=== PATIENT | female | born 2000 | race Caucasian/White ===

== ENCOUNTER 2022-07-30 14:11 | Emergency (ER) | payer MEDICAID, MEDICARE ==
[~2022-07-30] VITALS: Ht 160 cm; Wt 75.0 kg
[2022-07-30] MEDS ORDERED: IBUPROFEN 600MG TABLET PO STA (16:52)
[2022-07-30 16:58] VITALS: BP 131/96
[2022-07-30] MEDS ORDERED: D-ME473S50 PO (16:59)
[2022-07-30] MEDS ORDERED: AMOX500T2 MT (16:59)
[2022-07-30] MEDS ORDERED: IBUP-2029 PO (16:59)
== END 2022-07-30 17:10 | disposition home or self-care (01) ==
LOC: ER 14:11
DX: J06.9 Acute upper respiratory infection, unspecified (principal); H66.91 Otitis media, unspecified, right ear
CPT/HCPCS: 99283

== ENCOUNTER 2022-10-16 14:15 | Emergency (ER) | payer MEDICAID, MEDICARE ==
[~2022-10-16] VITALS: Ht 144.8 cm; Wt 58.0 kg
[~2022-10-16 14:15] MED LIST: AMOX500T2 MT; D-ME473S50 PO; IBUP-2029 PO
[2022-10-16 14:26] VITALS: BP 103/65
[2022-10-16] MEDS ORDERED: MAGNESIUM/ALUMINUM HYDROXIDE/SIMETHICONE 30ML UDC PO STA (16:41)
[2022-10-16] MEDS ORDERED: VISCOUS LIDOCAINE 2% 15 ML UDC PO STA (16:41)
[2022-10-16] MEDS ORDERED: ONDANSETRON HCL 4MG TABLET PO ONE (16:45)
[2022-10-16] MEDS ORDERED: FAMOTIDINE 20MG TABLET PO ONE (16:45)
[2022-10-16 17:26] LABS: CLARITY URINE TURBID (CLEAR); COLOR URINE DARK YELLOW (YELLOW); KETONES URINE NEGATIVE (NEGATIVE); LEUKOCYTE ESTERASE URINE NEGATIVE (NEGATIVE); NITRITE URINE NEGATIVE (NEGATIVE); OCCULT BLOOD URINE NEGATIVE (NEGATIVE); PH URINE 6.5 (4.5-8.0); PROTEIN URINE TRACE (NEGATIVE); SPECIFIC GRAVITY URINE 1.036 (1.005-1.030)
[2022-10-16] MEDS ORDERED: MAG-55 MT (17:56)
[2022-10-16] MEDS ORDERED: FAMO-135 MT (17:56)
== END 2022-10-16 18:15 | disposition home or self-care (01) ==
LOC: ER 14:15
DX: R10.30 Lower abdominal pain, unspecified (principal); R11.2 Nausea with vomiting, unspecified; Z90.49 Acquired absence of other specified parts of digestive tract; Z97.5 Presence of (intrauterine) contraceptive device
CPT/HCPCS: 81003; 81025; 99284; Q0162

== ENCOUNTER 2023-07-07 13:06 | Emergency (ER) | payer MEDICAID ==
[~2023-07-07] VITALS: Ht 162.6 cm; Wt 59.0 kg
[~2023-07-07 13:06] MED LIST changes: +FAMO-135 MT; +MAG-55 MT
[2023-07-07 14:10] VITALS: BP 122/83; PULSE 86; RESP 16; TEMP 98.6; O2SAT 100
[2023-07-07 15:03] LABS: BASOPHILS % 0.1 % (0.0-2.0); EOSINOPHILS % 1.3 % (0.0-5.0); HEMATOCRIT. 46.5 % (36.0-48.0); HEMOGLOBIN. 16.4 g/dL (12.0-16.0); LYMPHOCYTES % 17.4 % (20.0-50.0); MEAN CORPUSCULAR HEMOGLOBIN 31.1 pg (28.0-32.0); MEAN CORPUSCULAR HGB CONC 35.3 g/dL (31.0-37.0); MEAN PLATELET VOLUME 8.8 fl (7.4-10.4); MONOCYTES % 5.4 % (2.0-8.0); NEUTROPHILS % 75.8 % (40.0-76.0); PLATELET 288 x1000/uL (130-400); RED BLOOD CELL COUNT 5.29 mill/uL (4.2-5.4); RED CELL DISTRIBUTION WIDTH 12.5 % (11.6-14.6); WHITE BLOOD COUNT 8.6 x1000/uL (4.5-11.0)
[2023-07-07] MEDS ORDERED: ONDANSETRON HCL 4MG/2ML INJ IV STA (15:06)
[2023-07-07] MEDS ORDERED: KETOROLAC 30MG/ML VIAL IV STA (15:06)
[2023-07-07] MEDS ORDERED: SODIUM CHLORIDE 0.9% 500 ML IV ONE (15:15)
[2023-07-07] MEDS ORDERED: FAMOTIDINE 20MG/2ML VIAL IV ONE (15:15)
[2023-07-07 15:27] LABS: CHLORIDE 105 mEq/L (98-107); INDEX HEMOLYSI 1 (1-3); INDEX ICTERIC 1 (1-4); INDEX LIPEMIC 1 (1-3); POTASSIUM 3.7 mEq/L (3.5-5.1); SODIUM 139 mEq/L (136-145)
[2023-07-07 15:51] LABS: UREA NITROGEN BLOOD 14 mg/dL (7-21)
[2023-07-07 16:11] LABS: ALANINE AMINOTRANSFERASE 22 IU/L (13-61); ALBUMIN 4.4 g/dL (3.4-5.0); ASPARTATE AMINOTRANSFERASE 26 IU/L (15-37); BILIRUBIN TOTAL 1.1 mg/dL (0.1-1.0); CALCIUM 8.7 mg/dL (8.5-10.1); CARBON DIOXIDE 21 mEq/L (21-32); CREATININE 0.7 mg/dL (0.6-1.3); GLUCOSE 85 mg/dL (70-105); PROTEIN TOTAL 7.8 g/dL (6.0-8.3)
[2023-07-07] MEDS ORDERED: KETOROLAC 30MG/ML VIAL IV NR (17:30)
[2023-07-07] MEDS ORDERED: ONDANSETRON HCL 4MG/2ML INJ IV NR (17:30)
[2023-07-07] MEDS ORDERED: FAMOTIDINE 20MG/2ML VIAL IV NR (17:30)
== END 2023-07-07 18:35 | disposition home or self-care (01) ==
LOC: ER 13:06
DX: R11.2 Nausea with vomiting, unspecified (principal); R10.9 Unspecified abdominal pain; Z90.49 Acquired absence of other specified parts of digestive tract
CPT/HCPCS: 80053; 81025; 83690; 85025; 36415; 96361; 96374; 96375; 99284; J3490; J1885; J2405; J7030; Z7610 ×3

== ENCOUNTER 2023-12-02 09:38 | Emergency (ER) | payer MEDICAID ==
[~2023-12-02] VITALS: Ht 154.9 cm; Wt 61.0 kg
[2023-12-02 09:53] VITALS: O2SAT 99
[2023-12-02] MEDS ORDERED: OFLO5DRO4 RIGHT EAR (11:33)
[2023-12-02 12:18] VITALS: BP 131/66; PULSE 68; RESP 18; TEMP 98.2
== END 2023-12-02 12:21 | disposition home or self-care (01) ==
LOC: ER 10:14
DX: H92.01 Otalgia, right ear (principal); J02.9 Acute pharyngitis, unspecified
CPT/HCPCS: 87070; 87430; 99283

== ENCOUNTER 2024-04-21 19:59 | Emergency (ER) | payer MEDICAID ==
[~2024-04-21] VITALS: Ht 154.9 cm; Wt 63.0 kg
[~2024-04-21 19:59] MED LIST changes: +OFLO5DRO4 RIGHT EAR
[2024-04-21 21:24] VITALS: O2SAT 98
[2024-04-21 21:45] LABS: CLARITY URINE TURBID (CLEAR); COLOR URINE YELLOW (YELLOW); GLUCOSE URINE NEGATIVE (NEGATIVE); KETONES URINE 1+ (NEGATIVE); LEUKOCYTE ESTERASE URINE 3+ (NEGATIVE); NITRITE URINE NEGATIVE (NEGATIVE); OCCULT BLOOD URINE 3+ (NEGATIVE); PH URINE 6.5 (4.5-8.0); PROTEIN URINE 2+ (NEGATIVE); SPECIFIC GRAVITY URINE 1.018 (1.005-1.030); UROBILINOGEN URINE 0.2 E.U./dL (0.2-1.0)
[2024-04-21 21:59] LABS: BACTERIA URINE 2+; RBC URINE TNTC /hpf (0-2); SQUAMOUS EPITHELIAL CELL URINE 1+ /lpf (RARE/1+); WBC URINE TNTC /hpf (0-2)
[2024-04-21] MEDS ORDERED: PHEN-910 MT (22:13)
[2024-04-21] MEDS ORDERED: NITR100C MT (22:13)
[2024-04-21 22:27] VITALS: BP 123/67; PULSE 88; RESP 20; TEMP 98.9
== END 2024-04-21 22:30 | disposition home or self-care (01) ==
LOC: ER 19:59
DX: N39.0 Urinary tract infection, site not specified (principal); Z79.899 Other long term (current) drug therapy
CPT/HCPCS: 81003; 81025; 87077; 87186; 99283

== ENCOUNTER 2024-07-18 19:09 | Emergency (ER) | payer MEDICAID ==
[~2024-07-18] VITALS: Ht 154.9 cm; Wt 58.2 kg
[~2024-07-18 19:09] MED LIST changes: +NITR100C MT; +PHEN-910 MT
[2024-07-18 19:17] VITALS: O2SAT 98
[2024-07-18] MEDS ORDERED: ONDANSETRON HCL 4MG/2ML INJ IV STA (20:46)
[2024-07-18] MEDS: SODIUM CHLORIDE 0.9% 500 ML IV ONE (21:00)
[2024-07-18 22:12] LABS: BASOPHILS % 0.5 % (0.0-2.0); EOSINOPHILS % 2.5 % (0.0-5.0); HEMATOCRIT. 46.1 % (36.0-48.0); HEMOGLOBIN. 15.9 g/dL (12.0-16.0); LYMPHOCYTES % 34.5 % (20.0-50.0); MEAN CORPUSCULAR HEMOGLOBIN 31.2 pg (28.0-32.0); MEAN CORPUSCULAR HGB CONC 34.6 g/dL (31.0-37.0); MEAN CORPUSCULAR VOLUME 90.2 fL (81.0-99.0); MEAN PLATELET VOLUME 9.3 fl (7.4-10.4); MONOCYTES % 4.9 % (2.0-8.0); NEUTROPHILS % 57.6 % (40.0-76.0); PLATELET 263 x1000/uL (130-400); RED BLOOD CELL COUNT 5.11 mill/uL (4.2-5.4); RED CELL DISTRIBUTION WIDTH 12.8 % (11.6-14.6); WHITE BLOOD COUNT 7.5 x1000/uL (4.5-11.0)
[2024-07-18 22:19] LABS: CHLORIDE 110 mEq/L (98-107); POTASSIUM 4.5 mEq/L (3.5-5.1); SODIUM 142 mEq/L (136-145)
[2024-07-18 22:20] LABS: CALCIUM 9.9 mg/dL (8.7-10.4); CARBON DIOXIDE 28 mEq/L (21-32)
[2024-07-18 22:21] LABS: HCG SCREEN NEGATIVE
[2024-07-18 22:25] LABS: CREATININE 0.8 mg/dL (0.6-1.0); GLUCOSE 86 mg/dL (70-105); UREA NITROGEN BLOOD 11 mg/dL (9-23)
[2024-07-18 22:27] LABS: ALANINE AMINOTRANSFERASE < 7 IU/L (10-49); ASPARTATE AMINOTRANSFERASE 17 IU/L (<34); PROTEIN TOTAL 7.6 g/dL (6.0-8.3)
[2024-07-18] MEDS: ONDANSETRON HCL 4MG/2ML INJ IV NR (23:30)
[2024-07-18] MEDS ORDERED: ONDA4TAB50 MT (23:30)
[2024-07-18 23:35] VITALS: BP 108/67; PULSE 84; RESP 16; TEMP 36.66960; O2SAT 99
== END 2024-07-18 23:15 | disposition home or self-care (01) ==
LOC: ER 19:09
DX: R19.7 Diarrhea, unspecified (principal); Z90.49 Acquired absence of other specified parts of digestive tract; Z79.899 Other long term (current) drug therapy
CPT/HCPCS: 99283; 80053; 84703; 83690; 85025; 36415; J2405; J7030

== ENCOUNTER 2024-09-03 16:13 | Emergency (ER) | payer MEDICAID ==
[~2024-09-03] VITALS: Ht 154.9 cm; Wt 58.5 kg
[~2024-09-03 16:13] MED LIST changes: +ONDA4TAB50 MT
[2024-09-03 16:24] VITALS: O2SAT 100
[2024-09-03 17:39] LABS: CLARITY URINE CLEAR (CLEAR); COLOR URINE YELLOW (YELLOW); GLUCOSE URINE NEGATIVE (NEGATIVE); KETONES URINE NEGATIVE (NEGATIVE); LEUKOCYTE ESTERASE URINE 1+ (NEGATIVE); NITRITE URINE NEGATIVE (NEGATIVE); OCCULT BLOOD URINE TRACE (NEGATIVE); PROTEIN URINE NEGATIVE (NEGATIVE); SPECIFIC GRAVITY URINE 1.007 (1.005-1.030); UROBILINOGEN URINE 0.2 E.U./dL (0.2-1.0)
[2024-09-03 18:05] LABS: BACTERIA URINE TRACE; RBC URINE NONE SEEN /hpf (0-2); SQUAMOUS EPITHELIAL CELL URINE FEW /lpf (RARE/1+); WBC URINE NONE SEEN /hpf (0-2)
[2024-09-03] MEDS: IBUPROFEN 600MG TABLET PO STA (18:40)
[2024-09-03 19:40] LABS: BASOPHILS % 0.4 % (0.0-2.0); HEMOGLOBIN. 15.4 g/dL (12.0-16.0); LYMPHOCYTES % 27.4 % (20.0-50.0); MEAN CORPUSCULAR HEMOGLOBIN 30.8 pg (28.0-32.0); MEAN CORPUSCULAR HGB CONC 34.1 g/dL (31.0-37.0); MEAN CORPUSCULAR VOLUME 90.3 fL (81.0-99.0); MEAN PLATELET VOLUME 9.5 fl (7.4-10.4); MONOCYTES % 5.2 % (2.0-8.0); PLATELET 272 x1000/uL (130-400); RED BLOOD CELL COUNT 4.98 mill/uL (4.2-5.4); WHITE BLOOD COUNT 9.4 x1000/uL (4.5-11.0)
[2024-09-03 19:45] LABS: CHLORIDE 106 mEq/L (98-107); POTASSIUM 4.4 mEq/L (3.5-5.1); SODIUM 141 mEq/L (136-145)
[2024-09-03 19:46] LABS: CARBON DIOXIDE 27 mEq/L (21-32)
[2024-09-03 19:47] LABS: CALCIUM 9.8 mg/dL (8.7-10.4)
[2024-09-03 19:51] LABS: CREATININE 0.8 mg/dL (0.6-1.0); GLUCOSE 82 mg/dL (70-105)
[2024-09-03 19:52] LABS: UREA NITROGEN BLOOD 11 mg/dL (9-23)
[2024-09-03] MEDS ORDERED: IBUP-2029 MT (21:01)
[2024-09-03 21:08] VITALS: BP 114/77; PULSE 81; RESP 17; TEMP 36.83628; O2SAT 100
[2024-09-03] MEDS ORDERED: IMIT25 PO (21:08)
== END 2024-09-03 21:10 | disposition home or self-care (01) ==
LOC: ER 16:13
DX: R51.9 Headache, unspecified (principal); H53.8 Other visual disturbances; R42 Dizziness and giddiness; Z90.49 Acquired absence of other specified parts of digestive tract; Z79.899 Other long term (current) drug therapy
CPT/HCPCS: 36415; 80048; 81003; 81025; 85025; 93005; 99284

== ENCOUNTER 2025-02-11 09:53 | Emergency (ER) | payer MEDICAID ==
[~2025-02-11] VITALS: Ht 167.6 cm; Wt 63.0 kg
[~2025-02-11 09:53] MED LIST changes: +IBUP-2029 MT; +IMIT25 PO
[2025-02-11 09:56] VITALS: O2SAT 99
[2025-02-11 11:08] LABS: BASOPHILS % 0.3 % (0.0-2.0); EOSINOPHILS % 1.4 % (0.0-5.0); HEMATOCRIT. 44.3 % (36.0-48.0); HEMOGLOBIN. 15.1 g/dL (12.0-16.0); LYMPHOCYTES % 11.8 % (20.0-50.0); MEAN CORPUSCULAR HEMOGLOBIN 30.3 pg (28.0-32.0); MEAN CORPUSCULAR VOLUME 89.2 fL (81.0-99.0); MONOCYTES % 6.3 % (2.0-8.0); NEUTROPHILS % 80.2 % (40.0-76.0); PLATELET 216 x1000/uL (130-400); RED BLOOD CELL COUNT 4.97 mill/uL (4.2-5.4); RED CELL DISTRIBUTION WIDTH 13.2 % (11.6-14.6); WHITE BLOOD COUNT 9.2 x1000/uL (4.5-11.0)
[2025-02-11] MEDS: KETOROLAC 30MG/ML VIAL IM ONE (11:09)
[2025-02-11 11:14] LABS: CHLORIDE 104 mEq/L (98-107); POTASSIUM 3.6 mEq/L (3.5-5.1); SODIUM 137 mEq/L (136-145)
[2025-02-11 11:15] LABS: CALCIUM 9.1 mg/dL (8.7-10.4); CARBON DIOXIDE 27 mEq/L (21-32)
[2025-02-11 11:20] LABS: CREATININE 0.8 mg/dL (0.6-1.0); GLUCOSE 92 mg/dL (70-105); UREA NITROGEN BLOOD 10 mg/dL (9-23)
[2025-02-11] MEDS: PREDNISONE 20MG TABLET PO STA (11:22)
[2025-02-11 11:25] VITALS: PULSE 79; RESP 18
[2025-02-11] MEDS: ALBUTEROL (0.083%) 2.5MG/3ML NEB HHN STA (11:25)
[2025-02-11] MEDS: IPRATROPIUM BROMIDE (0.02%) 0.5MG/2.5ML NEB HHN STA (11:25)
[2025-02-11 11:28] LABS: HCG SCREEN NEGATIVE
[2025-02-11 11:33] LABS: CLARITY URINE CLEAR (CLEAR); COLOR URINE YELLOW (YELLOW); GLUCOSE URINE NEGATIVE (NEGATIVE); KETONES URINE NEGATIVE (NEGATIVE); LEUKOCYTE ESTERASE URINE 2+ (NEGATIVE); NITRITE URINE NEGATIVE (NEGATIVE); OCCULT BLOOD URINE 2+ (NEGATIVE); PH URINE 5.5 (4.5-8.0); PROTEIN URINE NEGATIVE (NEGATIVE); SPECIFIC GRAVITY URINE 1.021 (1.005-1.030); UROBILINOGEN URINE 0.2 E.U./dL (0.2-1.0)
[2025-02-11 11:51] LABS: SQUAMOUS EPITHELIAL CELL URINE 2+ /lpf (RARE/1+)
[2025-02-11 11:52] LABS: BACTERIA URINE 2+; YEAST URINE NONE SEEN
[2025-02-11] MEDS ORDERED: CEFP200T13 MT (12:46)
[2025-02-11] MEDS ORDERED: ALBU18HF2 IH (12:46)
[2025-02-11] MEDS ORDERED: IBUP1TAB11 MT (12:46)
[2025-02-11] MEDS ORDERED: BENZ200C52 MT (12:46)
[2025-02-11 12:56] VITALS: BP 110/66; PULSE 76; RESP 14; TEMP 36.9; O2SAT 99
[2025-02-11 14:34] LABS: INFLUENZA TYPE A Presumptive Negative (Pres. Neg.); INFLUENZA TYPE B Presumptive Negative (Pres. Neg.)
== END 2025-02-11 12:59 | disposition home or self-care (01) ==
LOC: ER 09:53
DX: J40 Bronchitis, not specified as acute or chronic (principal); N39.0 Urinary tract infection, site not specified; Z90.49 Acquired absence of other specified parts of digestive tract; Z79.899 Other long term (current) drug therapy; Z20.822 Contact with and (suspected) exposure to COVID-19
CPT/HCPCS: 80048; 81003; 81025; 84703; 85025; 87804 ×2; 36415; 71045; 94640; 96372; 99284; 87426; J7512; J1885; Z7610 ×3; 94070